=== PATIENT | female | born 1970 | race Hispanic/Latino ===

== ENCOUNTER 2016-08-30 16:34 | Outpatient (CLI) | payer OTHER | END 2016-08-30 16:35 | disposition home or self-care (01) | LOC: LABHHL 16:34 | PROVIDERS: ATTEND Surgery | DX: N63 Unspecified lump in breast (principal) | CPT/HCPCS: 88305 ==

== ENCOUNTER 2016-09-06 15:04 | Outpatient (CLI) | payer OTHER | END 2016-09-06 15:05 | disposition home or self-care (01) | LOC: LABHHL 15:04 | PROVIDERS: ATTEND Surgery | DX: N63 Unspecified lump in breast (principal) | CPT/HCPCS: 88305 ==

== ENCOUNTER 2020-07-06 10:53 | Outpatient (CLI) | payer OTHER ==
--- NOTE | 2020-07-08 12:59 | Mammography Report ---
DIGITAL SCREENING MAMMOGRAM WITH CAD, 07/06/2020 CLINICAL INFORMATION / INDICATION: Routine screening mammography. TECHNIQUE: Digital bilateral 2D mammography was obtained in the craniocaudal and mediolateral obliqu e projections. This examination was interpreted with the benefit of Computer-Aided Detection analysis . COMPARISON: 07/02/2019, 07/02/2018 FINDINGS: Breast Density: There are scattered areas of fibroglandular density. No dominant mass, suspicious calcifications, or architectural distortion in either breast. Left breast biopsy clips are unchanged. Bilateral benign-appearing nodularity is unchanged as well. IMPRESSION: No mammographic evidence of malignancy. Follow up recommendation: Routine yearly BI-RADS Category 2: Benign. A "normal" or negative report should not discourage follow up or biopsy of a clinically significant f inding. A written summary of these findings will be mailed to the patient. The patient will be entered into a mammography reporting system which will generate a reminder letter for the patient's next appointmen t at the appropriate interval. The [employer] recommends yearly mammograms starting at age 40 and continuing as l lola as a woman is in good health. Breast MRI is recommended for women with an approximate 20-25% or greater lifetime risk of breast cancer, including women with a strong family history of breast or ova joshua cancer or who have been treated for Hodgkin's disease. Signer Name: Beny Pelaez MD Signed: 07/08/2020 12:55 PM Workstation Name: [id number]
== END 2020-07-06 10:54 | disposition home or self-care (01) ==
LOC: SPVWC 10:53
PROVIDERS: ATTEND Surgery
DX: Z12.31 Encounter for screening mammogram for malignant neoplasm of breast (principal)
CPT/HCPCS: 77067

== ENCOUNTER 2021-12-15 10:27 | Outpatient (CLI) | payer OTHER ==
--- NOTE | 2021-12-17 13:01 | Mammography Report ---
DIGITAL SCREENING MAMMOGRAM WITH CAD, 12/15/2021 CLINICAL INFORMATION / INDICATION: Routine screening mammography TECHNIQUE: Digital 2D mammography was obtained in the craniocaudal and mediolateral oblique projectio ns. This examination was interpreted with the benefit of Computer-Aided Detection analysis. COMPARISON: 07/06/2020 and prior FINDINGS: Breast Density: There are scattered areas of fibroglandular density. No dominant mass, suspicious calcifications, or architectural distortion in either breast. Left biopsy changes are again seen. Mild benign-appearing bilateral nodularity is again seen. IMPRESSION: No mammographic evidence of malignancy. Follow up recommendation: Routine yearly screening mammogram. BI-RADS Category 2: BENIGN. A "normal" or negative report should not discourage follow up or biopsy of a clinically significant f inding. A written summary of these findings will be mailed to the patient. The patient will be entered into a mammography reporting system which will generate a reminder letter for the patient's next appointmen t at the appropriate interval. The [employer] recommends yearly mammograms starting at age 40 and continuing as l lola as a woman is in good health. Breast MRI is recommended for women with an approximate 20-25% or greater lifetime risk of breast cancer, including women with a strong family history of breast or ova joshua cancer or who have been treated for Hodgkin's disease. Signer Name: Kevin Bailey MD Signed: 12/17/2021 12:56 PM Workstation Name: [id number]
== END 2021-12-15 10:28 | disposition home or self-care (01) ==
LOC: SPVWC 10:27
PROVIDERS: ATTEND Surgery
DX: Z12.31 Encounter for screening mammogram for malignant neoplasm of breast (principal)
CPT/HCPCS: 77067